=== PATIENT | female | born 1965 | race Caucasian/White ===

== ENCOUNTER 2023-02-01 11:47 | Emergency (ER) | payer MEDICAID, SELFPAY ==
[2023-02-01 11:55] VITALS: BP 120/77; PULSE 71; RESP 16; TEMP 36.3; O2SAT 97; BMI 34.3
--- NOTE | 2023-02-01 12:55 | ED.ABDPAIN ---
HPI - Abdominal Pain General Chief Complaint: Abdominal Pain Stated Complaint: Nausea, vomiting Time Seen by Provider: 02/01/23 12:25 History of Present Illness HPI narrative: Patient has had n/v and diarrhea for 1 week. Stated she lives at [facility] and stomach flu has been going around. has many pills she has not been able to take ( seizure pills) due to this. Patient called . Stated she normally goes to [facility] but heard from EMS that it was a long wait there to asked to come to [place]. 57-year-old woman here with complaint of increasing abdominal pain sharp crampy in the pit of her stomach. Has had diarrhea that is somewhat dark she says, beginning about a week ago. Over last 12 hours has had 3 or 4 episodes. She is not on precedent antibiotics. She also has had some episodes of vomiting and is still nauseated. Did arrive via EMS and received I suspect Zofran in route. Says she still nauseated. Does have a history of abdominal surgeries including repair of aneurysm of the aorta per her description. May have had ischemic bowel or some degree of obstruction around that time as well per what she is telling. Has tried some loperamide she says she is now out. Does have ondansetron typically but sounds like has been working. Does live in assisted living. not been able to take her medications the last 6 days -- min vomiting. Sounds more like nausea been limiting her intake. Concern is of potential seizure without her medications. History of IBS alternating constipation diarrhea, does have a chronic pain, chronic fatigue, at the left see to some degree, migraines, occipital neuralgia, piriformis syndrome, polyneuropathy, sleep apnea, asthma, hypertension, morbid obesity, chronic kidney disease, TMJ syndrome, fibromyalgia, osteopenia, restless legs syndrome, cervical spondylosis, hypothyroid, anemia, lymphoma, anxiety, depression, lymphedema, GERD without esophagitis, insomnia, panic disorder, history rib fracture Related Data Home Medications Medication Instructions Recorded Confirmed albuterol sulfate 2.5 mg/3 mL 2.5 mg QID 02/01/23 (0.083 %) solution for nebulization albuterol sulfate 90 mcg/actuation 1 - 2 puff inhalation Q4H PRN 05/05/23 05/05/23 aerosol inhaler dyspnea atorvastatin 40 mg tablet 40 mg PO DAILY 02/01/23 02/01/23 bumetanide 1 mg tablet 3 mg PO DAILY 02/01/23 02/01/23 celecoxib 100 mg capsule 100 mg PO BID 02/01/23 02/01/23 cholestyramine (with sugar) 4 gram ea 02/01/23 oral powder (Questran) diclofenac sodium 1 % topical gel 4 g topical QID 02/01/23 02/01/23 duloxetine 30 mg capsule,delayed 90 mg PO DAILY 02/01/23 02/01/23 release fluticasone 250 mcg-salmeterol 50 1 ea inhalation BID 02/01/23 02/01/23 mcg/dose blistr powdr for inhalation fluticasone propionate 50 1 spray intranasal BID 02/01/23 02/01/23 mcg/actuation nasal spray,suspension hydroxyzine HCl 25 mg tablet 25 - 50 mg PO Q8H PRN itch 02/01/23 02/01/23 lamotrigine 100 mg tablet mg PO 02/01/23 levothyroxine 88 mcg tablet 88 mcg PO DAILY 02/01/23 02/01/23 lidocaine 5 % topical patch patch topical DAILY 02/01/23 loperamide 2 mg tablet 2 mg PO QID PRN 02/01/23 02/01/23 (Anti-Diarrheal (loperamide)) methocarbamol 500 mg tablet 500 mg PO BID PRN muscle spasm 02/01/23 02/01/23 metoclopramide HCl 5 mg/5 mL oral 5 mg PO QID 02/01/23 02/01/23 solution metolazone 2.5 mg tablet 2.5 mg PO 2XW 02/01/23 02/01/23 nystatin 100,000 unit/gram topical 1 applic topical DAILY 02/01/23 02/01/23 powder ondansetron HCl 4 mg tablet 4 mg PO Q8H PRN nausea/vomiting 02/01/23 02/01/23 pantoprazole 40 mg tablet,delayed 40 mg PO BID 02/01/23 02/01/23 release polyethylene glycol 3350 17 17 g PO DAILY 02/01/23 02/01/23 gram/dose oral powder (ClearLax) potassium chloride 10 mEq 20 meq PO QID 02/01/23 02/01/23 tablet,extended release pregabalin 150 mg capsule 150 mg PO 3XD 02/01/23 02/01/23 ropinirole 3 mg tablet 3 mg PO QPM 02/01/23 02/01/23 spironolactone 50 mg tablet 50 mg PO QAM 02/01/23 02/01/23 sumatriptan succinate 100 mg tablet mg PO 02/01/23 sumatriptan succinate 25 mg tablet 100 mg PO BID PRN migraine 02/01/23 02/01/23 Previous Rx's Medication Instructions Recorded loperamide 2 mg capsule 2 mg PO QID #30 caps 02/01/23 metoclopramide HCl 10 mg tablet 10 mg PO Q6H PRN nausea #15 tabs 02/01/23 (Reglan) sucralfate 100 mg/mL oral 10 ml PO BID #210 mL 02/01/23 suspension (Carafate) Allergies Allergy/AdvReac Type Severity Reaction Status Date / Time amoxicillin [From Augmentin] Allergy Severe Verified 02/01/23 16:02 clavulanic acid Allergy Severe Verified 02/01/23 16:02 [From Augmentin] gabapentin Allergy Severe Verified 02/01/23 16:02 nortriptyline Allergy Severe Verified 02/01/23 16:02 adhesive tape Allergy Unknown Verified 02/01/23 16:02 latex Allergy Unknown Verified 02/01/23 16:02 meperidine Allergy Unknown Verified 02/01/23 16:02 clonazepam Allergy Unknown Uncoded 02/01/23 16:02 silicones Allergy Unknown Uncoded 02/01/23 16:02 Review of Systems Status of ROS Reports: 6 or more systems reviewed and unremarkable except as noted in History and below Exam Narrative: Exam Narrative: Resting appears to be calmly when I enter her room and begins breathing as if quite uncomfortable. She is wincing grimacing in pain with hand at upper abdomen. Tender to palpation in the right low suprapubic area as well as in the epigastrium and left hypogastric am somewhat as well. No peritoneal signs. Diminished bowel sounds but I think present. Large midline abdominal scar. Lungs appear to be clear I think some clearing basilar crepitus with effort. Oropharynx is relatively moist. Non erythematous. Heart with regular rate and rhythm. Distant. Const: Vital Signs, click to edit/add: Vital Signs - 24 hr 02/01/23 11:55 02/01/23 15:07 Temperature 97.4 F L Pulse Rate [Pulse Oximeter] 71 Respiratory Rate 16 Blood Pressure [Le ft Upper Arm] 120/77 Pulse Oximetry 97 99 Oxygen Delivery Me thod Room Air Documenting provider has reviewed patient's vital signs: yes Course Reevaluation(s) Reevaluation #2: Declined GI cocktail after potassium bicarbonate made her nauseated Vital Signs Vital signs: Initial Vital Signs Temperature 97.4 F L 02/01/23 11:55 Temperature Source Temporal Artery Scan 02/01/23 11:55 Pulse Rate 71 02/01/23 11:55 Pulse Rhythm Regular 02/01/23 11:55 Pulse Strength 3+ Normal 02/01/23 11:55 Respiratory Rate 16 02/01/23 11:55 Blood Pressure 120/77 02/01/23 11:55 Blood Pressure Mean 91 02/01/23 11:55 Blood Pressure Position Sitting 02/01/23 11:55 Pulse Oximetry 97 02/01/23 11:55 Oxygen Delivery Method Room Air 02/01/23 11:55 Vital Signs Temperature 97.4 F L 02/01/23 11:55 Pulse Rate 71 02/01/23 11:55 Respiratory Rate 16 02/01/23 11:55 Blood Pressure 120/77 02/01/23 11:55 Pulse Oximetry 97 02/01/23 11:55 Oxygen Delivery Method Room Air 02/01/23 11:55 Temperature 97.4 F L 02/01/23 11:55 Pulse Rate 71 02/01/23 11:55 Respiratory Rate 16 02/01/23 11:55 Blood Pressure 120/77 02/01/23 11:55 Pulse Oximetry 99 02/01/23 15:07 Oxygen Delivery Method Room Air 02/01/23 11:55 MDM - Abdominal Pain MDM Narrative Medical decision making narrative: With complicated past medical I think I would like to see labs to point in a more specific imaging direction. Sounds to me like exacerbation of underlying inflammatory bowel disorder by some degree of gastroenteritis. Did initially treat with a couple doses of fentanyl given apparent degree of discomfort as search for source. Normal saline IV fluids given. She also received hyoscyamine and lorazepam. Finally did take GI cocktail. Most notable lab result was that was hypokalemic at 2.7. This was replaced with 10 mEq IV bump and 20 mEq x2 in the form of sodium bicarbonate which she actually managed to keep down. Remains quite uncomfortable. With persistent pain I did finally order a CT scan IV contrast of the abdomen and pelvis. I did review these images. See Radiology read as below. GI tract: Fatty infiltration within the wall of the cecum, ascending and proximal transverse colon as well as along the duodenum, may be reflective of multiple prior episodes of inflammation. Normal appendix. No bowel obstruction. Vasculature: Abdominal aorta is normal in caliber. Mesenteric arteries are patent. ? Lymph nodes: No lymphadenopathy. Peritoneum/Abdominal Wall: Anterior abdominal wall radiopaque densities may be related to prior hernia repair. Midline surgical scar is noted. No intra-abdominal free air or free fluid. Pelvis: Prior hysterectomy. Ovaries are not visualized. Bladder is unremarkable. Bones: Unremarkable for age. IMPRESSION: Trace left pleural effusion with adjacent compressive atelectasis, otherwise no acute intra-abdominal process identified. Multiple incidental and chronic findings as detailed in the body of the report. Spoke with Brielle at assisted living. She did call 911 for Ms. Vu. Understandably concerned that not taking medications. I am able to later confirm with Ms. Vu that she actually has been taking her medications here and there and spacing them out. Maybe not getting all of them in. But with diarrhea and the way she describes medications going through her quickly, conceivable that could become hypokalemic. At the end of rather extended stay in the emergency department she has had 1 bowel movement. Further complicating her environment is that her air mattress apparently is probably. She has been sleeping on the firm boards be knee Thor over this week. Had was a special order item she says and so has been unable to get a replacement or get it repaired. Called back to assisted living. Bed situation was reassessed. Sounds like there are some alternate locations that would provide better support in current bed. Manage to tolerate more p.o. strange that denied receiving crackers had just been given. Does appear that there might be some cognitive difficulties particular around recall. Continue to seek further cares brow for rolled in apparent discomfort handed upper abdomen. Eventually I discuss that we just reached the limits of what we can do in the emergency department and I am challenged to see case for admission with relatively unremarkable labs/imaging and what I believe is generally improvement in symptoms. She does have a relationship with Gastroenterology and does admit has an appointment in 5 days time with new primary care provider. Lab Data Attestation: I reviewed the patient's lab results. Labs: Lab Results 02/01/23 02/01/23 02/01/23 Range/Units 12:41 12:57 16:50 WBC 4.67 (4.50-11.00) K/uL RBC 5.35 H (4.00-5.20) m/uL Hgb 15.0 (12.0-16.0) gm/dL Hct 44.1 (33.0-51.0) % MCV 82 (80-100) fL MCH 28 (26-34) pg MCHC 34 (32-36) gm/dL RDW Coeff of [place] 14.2 (11.5-15.5) % Plt Count 257 (140-440) K/uL Neut % (Auto) 70.5 (42.0-72.0) % Lymph % (Auto) 21.0 (20-44) % [place] % (Auto) 5.1 (0.0-11.0) % Eos % (Auto) 2.6 (0.0-7.0) % Baso % (Auto) 0.6 (0.0-3.0) % Neut # (Auto) 3.29 (1.7-7.0) K/uL Lymph # (Auto) 0.98 (0.90-2.90) K/uL [place] # (Auto) 0.20 (0.00-0.90) K/UL Eos # (Auto) 0.12 (0.00-0.50) K/uL Baso # (Auto) 0.03 (0.00-0.30) K/uL Sodium 136 (135-149) mmol/L Potassium 2.7 L* (3.6-5.1) mmol/L Chloride 102 (96-114) mmol/L Carbon Dioxide 29 (20-32) mmol/L BUN 11 (7-30) mg/dL Creatinine 1.0 (0.5-1.5) mg/dL Estimated Creat Clear 54.89 Estimated GFR 67 ml/min Glucose 96 (60-115) mg/dL Calcium 8.9 (8.4-10.6) mg/dL Magnesium 1.9 (1.5-2.6) mg/dL Total Bilirubin 0.6 (0.1-1.5) mg/dL Direct Bilirubin 0.0 (0.0-0.5) mg/dL AST 28 (12-35) U/L ALT 25 (4-35) U/L Alkaline Phosphatase 194 H (40-150) U/L C-Reactive Protein 0.6 (0.5-1.0) mg/dL Total Protein 6.1 (6.0-8.3) g/dL Albumin 4.0 (3.3-5.0) g/dL Urine Color Yellow (Yellow) Urine Appearance Clear (Clear) Urine pH 7.0 (5.0-8.5) Ur Specific [place] 1.015 (1.000-1.030) Urine Protein Negative (Negative) Urine Glucose (UA) Negative (Negative) Urine Ketones Negative (Negative) Urine Blood Negative (Negative) Urine Nitrite Negative (Negative) Urine Bilirubin Negative (Negative) Urine Urobilinogen 0.2 (0.2-1.0) Ur Leukocyte Esterase Trace A (Negative) Urine RBC 0-2 (0-2) Urine WBC 0-2 (0-5) Ur Squamous Epith Cells None (None-Few) Urine Bacteria None (None) SARS-CoV-2 (PCR) Negative SARS-CoV-2 (Negative) Influenza Type A (PCR) Negative PCR FLU A (Negative) Influenza Type B (PCR) Negative PCR FLU B (Negative) Discharge Plan Discharge Clinical Impression: Upper abdominal pain, Gastroenteritis, Mixed irritable bowel syndrome, Hypokalemia Patient Disposition: Home w/ Parent or Adult Condition: Improved Instructions: Abdominal Pain (ED) Additional Instructions: Slow advance of diet over the next 48 hours. Start with soup broths, diluted juices, Jell-O, crackers, rice, toast. I have prescribed a refill of your loperamide. I prescribed different anti-nausea medication (metoclopramide) which you received here which you seemed to tolerate quite well. Also medication to coat your stomach called Carafate (also known as sucralfate), just for temporary use. Given what Brielle found, it sounds like you might need to try sleeping in another part of your bed to be potentially more comfortable in the short term. I would keep calling your case investigator every few days for follow-up in this regard. In the meantime perhaps the company has an idea about how to help make your bed more comfortable as well. Perhaps it would be easier to find some memory foam to put beneath. Keep taking your usual medications as best you can. Recheck your labs in the middle of next week; especially your potassium level Activity Level: No Restrictions Discharge Diet: Regular Prescriptions: New metoclopramide HCl [Reglan] 10 mg tablet 10 mg PO Q6H PRN (Reason: nausea) Qty: 15 0RF loperamide 2 mg capsule 2 mg PO QID Qty: 30 0RF Rx Instructions: Take 2 mg p.o. following each loose/watery stool after initial 4 mg dose. Up to 16 mg in a day. sucralfate [Carafate] 100 mg/mL suspension 10 ml PO BID Qty: 210 0RF No Action metolazone 2.5 mg tablet 2.5 mg PO 2XW atorvastatin 40 mg tablet 40 mg PO DAILY methocarbamol 500 mg tablet 500 mg PO BID PRN (Reason: muscle spasm) fluticasone propion-salmeterol 250-50 mcg/dose blister with device 1 ea inhalation BID albuterol sulfate 2.5 mg /3 mL (0.083 %) solution for nebulization 2.5 mg QID sumatriptan succinate 100 mg tablet PO sumatriptan succinate 25 mg tablet 100 mg PO BID PRN (Reason: migraine) ondansetron HCl 4 mg tablet 4 mg PO Q8H PRN (Reason: nausea/vomiting) ropinirole 3 mg tablet 3 mg PO QPM metoclopramide HCl 5 mg/5 mL solution 5 mg PO QID potassium chloride 10 mEq tablet extended release 20 meq PO QID levothyroxine 88 mcg tablet 88 mcg PO DAILY pantoprazole 40 mg tablet,delayed release (DR/EC) 40 mg PO BID lidocaine 5 % adhesive patch,medicated topical DAILY bumetanide 1 mg tablet 3 mg PO DAILY hydroxyzine HCl 25 mg tablet 25 - 50 mg PO Q8H PRN (Reason: itch) polyethylene glycol 3350 [ClearLax] 17 gram/dose powder 17 g PO DAILY albuterol sulfate 90 mcg/actuation HFA aerosol inhaler 1 - 2 puff INHALATION Q4H PRN (Reason: dyspnea) celecoxib 100 mg capsule 100 mg PO BID fluticasone propionate 50 mcg/actuation spray,suspension 1 spray INTRANASAL BID lamotrigine 100 mg tablet PO spironolactone 50 mg tablet 50 mg PO QAM duloxetine 30 mg capsule,delayed release(DR/EC) 90 mg PO DAILY pregabalin 150 mg capsule 150 mg PO 3XD diclofenac sodium 1 % gel 4 g topical QID cholestyramine (with sugar) [Questran] 4 gram powder nystatin 100,000 unit/gram powder 1 applic topical DAILY loperamide [Anti-Diarrheal (loperamide)] 2 mg tablet 2 mg PO QID PRN Follow Up/Referrals: Provider,Not a Local [Primary Care Provider] - Stand Alone Forms: [facility] Info Inst[facility]
[2023-02-01 13:10] LABS: Basophils Absolute Auto 0.03 K/uL (0.00-0.30); Basophils Percent Auto 0.6 % (0.0-3.0); Eosinophils Absolute Auto 0.12 K/uL (0.00-0.50); Eosinophils Percent Auto 2.6 % (0.0-7.0); Hematocrit 44.1 % (33.0-51.0); Immature Granulocytes Abs Auto 0.01 K/uL (0.00-0.30); Immature Granulocytes Pct Auto 0.2 %; Lymphocytes Absolute Auto 0.98 K/uL (0.90-2.90); Mean Corpuscular HGB Conc 34 gm/dL (32-36); Mean Corpuscular Hemoglobin 28 pg (26-34); Mean Corpuscular Volume 82 fL (80-100); Monocytes Percent Auto 5.1 % (0.0-11.0); Neutrophils Absolute Auto 3.29 K/uL (1.7-7.0); Neutrophils Percent Auto 70.5 % (42.0-72.0); Platelet Count* 257 K/uL (140-440); RDW Coefficient of Variation % 14.2 % (11.5-15.5); Red Blood Count 5.35 m/uL (4.00-5.20); White Blood Count* 4.67 K/uL (4.50-11.00)
[2023-02-01] MEDS: 0.9 % SODIUM CHLORIDE 1000 ml 1,000 ML IV (13:10)
[2023-02-01] MEDS: fentaNYL 100 MCG/2 ML inj 50 MCG IVP (13:10)
[2023-02-01 13:15] LABS: Slide Review Reflex No
[2023-02-01] MEDS: METOCLOPRAMIDE HCL 10 MG in 0.9 % SODIUM CHLORIDE 100 ml 100 ML 306 MG IVPB (13:16)
[2023-02-01 13:30] LABS: Chloride* 102 mmol/L (96-114); Sodium* 136 mmol/L (135-149)
[2023-02-01 13:33] LABS: Est. Creatinine Clearance* 54.89; Estimated Glomerular Filt Rate 67 ml/min
[2023-02-01 13:34] LABS: Bilirubin Total* 0.6 mg/dL (0.1-1.5); Blood Urea Nitrogen* 11 mg/dL (7-30); Calcium* 8.9 mg/dL (8.4-10.6); Carbon Dioxide* 29 mmol/L (20-32); Glucose* 96 mg/dL (60-115); Total Protein* 6.1 g/dL (6.0-8.3)
[2023-02-01 13:35] LABS: Alanine Aminotransferase* 25 U/L (4-35); Alkaline Phosphatase* 194 U/L (40-150); Aspartate Amino Transferase* 28 U/L (12-35); Magnesium* 1.9 mg/dL (1.5-2.6)
[2023-02-01 13:36] LABS: Potassium* 2.7 mmol/L (3.6-5.1)
[2023-02-01 13:37] LABS: C Reactive Protein* 0.6 mg/dL (0.5-1.0)
[2023-02-01 13:38] LABS: PCR FLU A Negative PCR FLU A (Negative); PCR FLU B Negative PCR FLU B (Negative)
[2023-02-01 13:42] LABS: SARS PCR* Negative SARS-CoV-2 (Negative)
[2023-02-01] MEDS: POTASSIUM CHLORIDE 10 MEQ/100 ML PIGGYBACK 100 MEQ IVPB (14:30)
[2023-02-01] MEDS: POTASSIUM BICARB 25 MEQ EFFERVESCENT TAB PO ×2 (14:30→19:00)
[2023-02-01] MEDS: LORazepam 2 MG/ML inj 0.5 MG IVP (14:58)
[2023-02-01] MEDS: fentaNYL 100 MCG/2 ML inj 25 MCG IVP (14:59)
[2023-02-01 15:07] VITALS: O2SAT 99
[2023-02-01] MEDS: HYOSCYAMINE SULFATE 0.125 MG TAB 0.25 MG SUBLINGUAL (15:30)
--- NOTE | 2023-02-01 15:48 | CRLHL7_ITS ---
For Patients: As a result of the Century Cures Act, medical imaging exams and procedure reports are released immediately into your electronic medical record. You may view this report before your referring provider. If you have questions, please contact your health care provider. INDICATION: Upper abdominal pain.. TECHNIQUE: CT abdomen and pelvis acquired with 98 cc Isovue 370 IV contrast. COMPARISON: None. FINDINGS: Lower chest: Trace left pleural effusion with adjacent mild compressive atelectasis. Liver: Unremarkable. Normal in size and attenuation. No suspicious masses. Gallbladder and bile ducts: Status post cholecystectomy. No significant intra or extrahepatic biliary ductal dilatation. Pancreas: Unremarkable. No mass or inflammation. Spleen: Unremarkable. Normal in size. No masses. Adrenal glands: Unremarkable. No nodules. Kidneys: Multiple bilateral hypodense lesions in the kidneys likely cysts. No hydronephrosis or hydroureter. No renal stones or ureteral stones identified. GI tract: Fatty infiltration within the wall of the cecum, ascending and proximal transverse colon as well as along the duodenum, may be reflective of multiple prior episodes of inflammation. Normal appendix. No bowel obstruction. Vasculature: Abdominal aorta is normal in caliber. Mesenteric arteries are patent. Lymph nodes: No lymphadenopathy. Peritoneum/Abdominal Wall: Anterior abdominal wall radiopaque densities may be related to prior hernia repair. Midline surgical scar is noted. No intra-abdominal free air or free fluid. Pelvis: Prior hysterectomy. Ovaries are not visualized. Bladder is unremarkable. Bones: Unremarkable for age. IMPRESSION: Trace left pleural effusion with adjacent compressive atelectasis, otherwise no acute intra-abdominal process identified. Multiple incidental and chronic findings as detailed in the body of the report. Please note that all CT scans at this facility use dose modulation, iterative reconstruction, and/or weight-based dosing when appropriate to reduce radiation dose to as low as reasonably achievable. Dictated by Davidson Bowie MD @ 02/01/2023 4:54:29 PM (Electronically Signed)
[2023-02-01 18:16] LABS: Appearance Urine Clear (Clear); Bilirubin Urine Negative (Negative); Blood Urine Negative (Negative); Color Urine Yellow (Yellow); Glucose Urine Negative (Negative); Ketones Urine Negative (Negative); Leukocyte Esterase Urine Trace (Negative); Nitrite Urine Negative (Negative); Protein Urine Negative (Negative); Specific Gravity Urine 1.015 (1.000-1.030); Urobilinogen Urine 0.2 (0.2-1.0)
[2023-02-01 18:32] LABS: RBC Urine 0-2 (0-2); WBC Urine 0-2 (0-5)
[2023-02-01] MEDS: lamoTRIgine 100 MG TABLET 300 MG PO (19:45)
[2023-02-01] MEDS: SUCRALFATE 1 GM TABLET PO (20:42)
== END 2023-02-01 22:18 | disposition home or self-care (01) ==
PROVIDERS: Emergency Provider Family Medicine
DX: K52.9 Noninfective gastroenteritis and colitis, unspecified (principal); K58.9 Irritable bowel syndrome, unspecified; E87.6 Hypokalemia
CPT/HCPCS: 36415; 74177; 80048; 80076; 81001; 83735; 85025; 86140; 87631; 94761; 96365; 96366; 96375; 99284; 99285; A9270; J2060; J2765; J3010; J3480; J7030; Q9967

== ENCOUNTER 2023-02-01 22:14 | Outpatient (CLI) | payer MEDICAID, SELFPAY | END 2023-02-01 22:15 | disposition home or self-care (01) | LOC: AMB 02-05 16:57 | PROVIDERS: Visit Provider Family Medicine | DX: Z99.3 Dependence on wheelchair (principal) | CPT/HCPCS: A0425; A0428 ==